=== PATIENT | female | born 1965 | race Caucasian/White ===

== ENCOUNTER 2017-02-01 08:13 | Emergency (ER) | payer OTHER ==
[~2017-02-01 08:13] MED LIST: PERC5TAB12 PO
[2017-02-01 08:15] VITALS: BP 172/81; PULSE 95; RESP 18; O2SAT 98
[2017-02-01] MEDS ORDERED: SODIUM CHLORIDE 0.9% FLUSH 10 ML FLUSH IV FLUSH PRN (08:30)
[2017-02-01] MEDS ORDERED: bp med (08:34)
[2017-02-01 08:39] LABS: BLOOD, URINE SMALL (NEG); GLUCOSE,URINE NEG (NEG); KETONE, URINE NEG (NEG); NITRITE,URINE NEG (NEG); PH, URINE 5.5 (5.0-8.5)
[2017-02-01 08:44] LABS: METHOD OF COLLECTION CLEAN CATCH; URINE COLOR YELLOW (YELLW/STRAW)
[2017-02-01 08:45] LABS: COMMENT (UR) CULT NOT INDICATED; CULTURE IF INDICATED CULT NOT INDICATED; SQUAMOUS EPITHELIAL CELL URINE 0-5 /hpf (0-5); WBC, URINE 0-2 /hpf (0-5)
[2017-02-01 08:50] LABS: AUTOMATED NEUTROPHIL # 9.7 TH/MM3 (1.8-7.7); BASOPHIL # 0.3 TH/MM3 (0-0.2); BASOPHIL % 2.4 % (0.0-2.0); EOSINOPHIL # 0.1 TH/MM3 (0-0.4); EOSINOPHIL % 0.5 % (0.0-4.0); HEMO FLAGS DIFF FINAL; LYMPH % 16.4 % (9.0-44.0); LYMPHOCYTE # 2.1 TH/MM3 (1.0-4.8); MEAN CORPUSCULAR HEMOGLOBIN 31.5 PG (27.0-34.0); MEAN CORPUSCULAR HGB CONC 34.3 % (32.0-36.0); NEUT % 74.7 % (16.0-70.0); PLATELET COUNT 303 TH/MM3 (150-450); RED BLOOD COUNT 4.78 MIL/MM3 (4.00-5.30); RED CELL DISTRIBUTION WIDTH 11.5 % (11.6-17.2)
[2017-02-01 08:59] LABS: CHLORIDE 100 MEQ/L (98-107); POTASSIUM 3.8 MEQ/L (3.5-5.1); SODIUM (NA) 135 MEQ/L (136-145)
[2017-02-01 09:03] LABS: ANION GAP 10 MEQ/L (5-15); BICARBONATE 25.2 MEQ/L (21.0-32.0); BLOOD UREA NITROGEN 6 MG/DL (7-18)
[2017-02-01 09:05] VITALS: BP 176/99; PULSE 88; RESP 18; O2SAT 98
[2017-02-01 09:06] LABS: ALT (GPT) 35 U/L (10-53); AST (GOT) 27 U/L (15-37); GLOMERULAR FILTRATION RATE 96 ML/MIN (>89)
[2017-02-01 09:08] LABS: TOTAL BILIRUBIN ADULT 1.4 MG/DL (0.2-1.0)
[2017-02-01 09:09] LABS: ALKALINE PHOSPHATASE 82 U/L (45-117)
[2017-02-01] MEDS ORDERED: IOHEXOL 350 MG/ML 10 ML VIAL (for RAD DIAG) IV ONE (09:39)
--- NOTE | 2017-02-01 09:46 | PD ---
HPI Chief Complaint: Abdominal Pain Time Seen by Provider: 08:21 Travel History International Travel<30 days: No Contact w/Intl Traveler<30days: No Traveled to known affect area: No History of Present Illness HPI 51-year-old female arrives complaining of lower abdomen/pelvic pain for about 20 hours or so. She states the onset was somewhat sudden. Pain has been constant since. It can be severe at times. It felt initially as though she had to urinate however no changes symptoms after urination is reported. No hematuria dysuria reported. No nausea vomiting or fever. Patient underwent uterine ablation years prior. Appetite has been normal. PFSH Past Medical History Cardiovascular Problems: Yes High Cholesterol: Yes Diminished Hearing: No Hypertension: Yes Influenza Vaccination: No ?: Not LMP: ablation Past Surgical History Gynecologic Surgery: Yes Other Surgery: Yes (breast reduction) Social History Alcohol Use: Yes Tobacco Use: No Substance Use: No Allergies-Medications (Allergen,Severity, Reaction): Coded Allergies: No Known Allergies (Verified , 02/01/17) Reported Meds & Prescriptions Reported Meds & Active Scripts Active Reported [bp med] 0 Review of Systems Except as stated in HPI: all other systems reviewed are Neg Physical Exam Narrative GENERAL: 51 yo F, WNWD, NAD SKIN: Warm and dry. HEAD: Atraumatic. Normocephalic. EYES: Pupils equal and round. No scleral icterus. No injection or drainage. ENT: No nasal bleeding or discharge. Mucous membranes pink and moist. NECK: Trachea midline. No JVD. CARDIOVASCULAR: Regular rate and rhythm. RESPIRATORY: No accessory muscle use. Clear to auscultation. Breath sounds equal bilaterally. GASTROINTESTINAL: Soft. TTP suprapubic abdomen. No flank tenderness. No TTP at McBurney's point. Negative Nelson's sign. MUSCULOSKELETAL: Extremities without clubbing, cyanosis, or edema. No obvious deformities. NEUROLOGICAL: Awake and alert. No obvious cranial nerve deficits. Motor grossly within normal limits. Five out of 5 muscle strength in the arms and legs. Normal speech. PSYCHIATRIC: Appropriate mood and affect; insight and judgment normal. Data Data Last Documented VS Vital Signs Date Time Temp Pulse Resp B/P Pulse Ox O2 Delivery O2 Flow Rate FiO2 02/01/17 09:05 88 18 176/99 98 02/01/17 08:15 Room Air Orders Complete Blood Count With Diff (02/01/17 08:25) Comprehensive Metabolic Panel (02/01/17 08:25) Lipase (02/01/17 08:25) Urinalysis - C+S If Indicated (02/01/17 08:25) Iv Access Insert/Monitor (02/01/17 08:25) Ecg Monitoring (02/01/17 08:25) Oximetry (02/01/17 08:25) Sodium Chloride 0.9% Flush (Ns Flush) (02/01/17 08:30) Ct Abd/Pel W Iv Contrast(Rout) (02/01/17 08:47) Iohexol 350 Inj (Omnipaque 350 Inj) (02/01/17 09:39) Labs Laboratory Tests Test 02/01/17 02/01/17 08:30 08:45 Urine Collection Type CLEAN CATCH Urine Color YELLOW Urine Turbidity CLEAR Urine pH 5.5 Urine Specific [place] 1.012 Urine Protein NEG mg/dL Urine Glucose (UA) NEG mg/dL Urine Ketones NEG mg/dL Urine Occult Blood SMALL Urine Nitrite NEG Urine Bilirubin NEG Urine Leukocyte Esterase NEG Urine RBC 4-9 /hpf Urine WBC 0-2 /hpf Urine Squamous Epithelial 0-5 /hpf Cells Microscopic Urinalysis Comment CULT NOT INDICATED Urine Collection Time 08:30 White Blood Count 13.0 TH/MM3 Red Blood Count 4.78 MIL/MM3 Hemoglobin 15.1 GM/DL Hematocrit 44.0 % Mean Corpuscular Volume 92.0 FL Mean Corpuscular Hemoglobin 31.5 PG Mean Corpuscular Hemoglobin 34.3 % Concent Red Cell Distribution Width 11.5 % Platelet Count 303 TH/MM3 Mean Platelet Volume 6.6 FL Neutrophils (%) (Auto) 74.7 % Lymphocytes (%) (Auto) 16.4 % Monocytes (%) (Auto) 6.0 % Eosinophils (%) (Auto) 0.5 % Basophils (%) (Auto) 2.4 % Neutrophils # (Auto) 9.7 TH/MM3 Lymphocytes # (Auto) 2.1 TH/MM3 Monocytes # (Auto) 0.8 TH/MM3 Eosinophils # (Auto) 0.1 TH/MM3 Basophils # (Auto) 0.3 TH/MM3 CBC Comment DIFF FINAL Differential Comment Sodium Level 135 MEQ/L Potassium Level 3.8 MEQ/L Chloride Level 100 MEQ/L Carbon Dioxide Level 25.2 MEQ/L Anion Gap 10 MEQ/L Blood Urea Nitrogen 6 MG/DL Creatinine 0.65 MG/DL Estimat Glomerular Filtration 96 ML/MIN Rate Random Glucose 120 MG/DL Calcium Level 9.5 MG/DL Total Bilirubin 1.4 MG/DL Aspartate Amino Transf 27 U/L (AST/SGOT) Alanine Aminotransferase 35 U/L (ALT/SGPT) Alkaline Phosphatase 82 U/L Total Protein 7.9 GM/DL Albumin 3.9 GM/DL Lipase 216 U/L MDM Medical Decision Making Medical Screen Exam Complete: Yes Emergency Medical Condition: Yes Medical Record Reviewed: Yes Differential Diagnosis Constipation, Gastritis, Acute Cholecystitis, Biliary Colic, Pancreatitis, VERMA , Hepatitis, Bowel Obstruction, Cystitis, Mesenteric Ischemia, AAA, Appendicitis , Renal Stone/Hydronephrosis, GERD, perforated viscous Narrative Course CBC & BMP Diagram 02/01/17 08:45 LFTs normal UA no UTI Last 24 hours Impressions Abdomen/Pelvis CT 02/01/17 0836 Signed Impressions: Service Date/Time: Wednesday, February 01, 2017 09:22 - CONCLUSION: 1. Acute diverticulitis involving the proximal sigmoid colon without pericolic abscess. 2. Tiny 8 mm calcified exophytic fibroid arising from the uterine fundus. 3. Enlarged fatty liver. 4. Mild degenerative changes and scoliosis of the thoracolumbar spine. 5. Minimal posterior bibasilar atelectasis. Gaurav Chen MD The patient is resting comfortably and feels better, is alert and in no distress. The patients results and examination findings were discussed. The repeat examination is unremarkable and benign. The history, exam, diagnostic testing, and current condition do not suggest any significant pathology to warrant further testing, continued ED treatment, admission, or surgical evaluation at this point. The vital signs have been stable. The patient does not have uncontrollable pain, intractable vomiting, or other significant symptoms. The patient's condition is stable and appropriate for discharge. The patient will pursue further outpatient evaluation with a primary care physician or other designated or consulting physician as indicated in the discharge instructions. The patient expressed understanding and was agreeable with this plan. Diagnosis Primary Impression: Diverticulitis Qualified Code: K57.32 - Diverticulitis of large intestine without perforation or abscess without bleeding Referrals: Primary Care Physician 2 days Additional Instructions: RETURN TO THE ER IF YOU DEVELOP FEVER, SEVERE OR WORSENING PAIN, ESPECIALLY WITHIN THE NEXT EIGHT HOURS AFTER DISCHARGE. PLEASE BE SURE TO READ ABOUT DIVERTICULITIS AND ADJUST YOUR DIET ACCORDINGLY. RECURRENT EPISODES MAY REQUIRE A COLECTOMY WITH AN ABDOMINAL WALL OSTOMY BAG WHICH IS OBVIOUSLY UNDESIRABLE. Med/Other Pt SpecificInfo: Prescription(s) given Scripts Metronidazole (Flagyl)500 Mg [id number] Mg PO TID 10 Days Ref 0 Prov:Jon Persaud MD 02/01/17 Ciprofloxacin (Cipro)500 Mg [id number] Mg PO BID 10 Days Ref 0 Prov:Jon Persaud MD 02/01/17 Disposition: 01 DISCHARGE HOME Condition: Stable Jon Persaud MD Feb 01, 2017 09:46
--- NOTE | 2017-02-01 09:58 | RADRPT ---
EXAM DATE/TIME: 02/01/2017 09:22 [facility] COMPARISON: No previous studies available for comparison. INDICATIONS : Suprapubic pain for one day. IV CONTRAST: 90 cc Omnipaque 350 (iohexol) IV ORAL CONTRAST: No oral contrast ingested. RADIATION DOSE: 9.54 CTDIvol (mGy) MEDICAL HISTORY : Hypertension. SURGICAL HISTORY : None. ENCOUNTER: Initial ACUITY: 1 day PAIN SCALE: 6/10 LOCATION: pelvis TECHNIQUE: Volumetric scanning of the abdomen and pelvis was performed. Using automated exposure control and ad justment of the mA and/or kV according to patient size, radiation dose was kept as low as reasonably achievable to obtain optimal diagnostic quality images. DICOM format image data is available electro nically for review and comparison. FINDINGS: LOWER LUNGS: Minimal posterior bibasilar atelectasis is noted. LIVER: The liver is enlarged and demonstrates diffuse fatty infiltration.. There is no dilation of the bili shubham tree. No calcified gallstones. SPLEEN: Normal size without lesion. PANCREAS: Within normal limits. KIDNEYS: Normal in size and shape. There is no mass, stone or hydronephrosis. ADRENAL GLANDS: Within normal limits. VASCULAR: There is no aortic aneurysm. BOWEL/MESENTERY: There is a focal thickening as well as pericolic inflammatory changes involving the proximal sigmoid colon consistent with acute diverticulitis. No pericolic abscess is noted. ABDOMINAL WALL: Within normal limits. RETROPERITONEUM: There is no lymphadenopathy. BLADDER: No wall thickening or mass. REPRODUCTIVE: There is a tiny 8 mm calcified exophytic fibroid arising from the uterine fundus. INGUINAL: There is no lymphadenopathy or hernia. MUSCULOSKELETAL: Degenerative changes and scoliosis of the thoracolumbar spine are noted. CONCLUSION: 1. Acute diverticulitis involving the proximal sigmoid colon without pericolic abscess. 2. Tiny 8 mm calcified exophytic fibroid arising from the uterine fundus. 3. Enlarged fatty liver. 4. Mild degenerative changes and scoliosis of the thoracolumbar spine. 5. Minimal posterior bibasilar atelectasis. Gaurav Chen MD on February 01, 2017 at 9:52 Board Certified Radiologist. This report was verified electronically.
[2017-02-01] MEDS ORDERED: CIPR-9 PO (10:10)
[2017-02-01] MEDS ORDERED: METR-1 PO (10:10)
== END 2017-02-01 10:20 | disposition home or self-care (01) ==
LOC: PHED 08:13
DX: K57.32 Diverticulitis of large intestine without perforation or abscess without bleeding (principal); D25.9 Leiomyoma of uterus, unspecified; K76.0 Fatty (change of) liver, not elsewhere classified; J98.11 Atelectasis; I10 Essential (primary) hypertension; E78.00 Pure hypercholesterolemia, unspecified; Z86.79 Personal history of other diseases of the circulatory system
CPT/HCPCS: 74177; 80053; 81001; 83690; 85025; 99285; Q9967

== ENCOUNTER 2017-12-05 16:45 | Emergency (ER) | payer OTHER ==
[~2017-12-05] VITALS: Ht 157.5 cm; Wt 69.0 kg
[~2017-12-05 16:45] MED LIST changes: +CIPR-9 PO; +METR-1 PO; -PERC5TAB12 PO; +bp med
[2017-12-05 16:52] VITALS: BP 176/90; PULSE 96; RESP 16; TEMP 98.6; O2SAT 96
--- NOTE | 2017-12-05 17:50 | RADRPT ---
EXAM DATE: 12/05/2017 5:45 PM EDT AGE/SEX: 52 years / Female INDICATIONS: Right foot pain post fall CLINICAL DATA: This is the patient's initial encounter. Patient reports that signs and symptoms have been present for 3 days and indicates a pain score of 5/10. MEDICAL/SURGICAL HISTORY: None. None. COMPARISON: No prior [place] exams available for comparison. FINDINGS: Bony structures are intact and in normal alignment. Osseous density is normal. Soft tissues are unre markable. No radiopaque foreign bodies seen. CONCLUSION: No acute bony abnormality. Electronically signed by: Santiago Matthews MD 12/05/2017 5:49 PM EDT
--- NOTE | 2017-12-05 17:52 | RADRPT ---
EXAM DATE: 12/05/2017 5:47 PM EDT AGE/SEX: 52 years / Female INDICATIONS: Right ankle pain post fall CLINICAL DATA: This is the patient's initial encounter. Patient reports that signs and symptoms have been present for 3 days and indicates a pain score of 5/10. MEDICAL/SURGICAL HISTORY: None. None. COMPARISON: No prior [place] exams available for comparison. FINDINGS: Soft tissue swelling noted over the lateral malleolus. No acute fracture or dislocation. Mild degener ative change of the ankle joint. CONCLUSION: Soft tissue swelling over the lateral malleolus. No acute bony abnormality. Electronically signed by: Santiago Matthews MD 12/05/2017 5:51 PM EDT
--- NOTE | 2017-12-05 18:02 | PD ---
HPI Chief Complaint: Injury Time Seen by Provider: 17:18 Travel History International Travel<30 days: No Contact w/Intl Traveler<30days: No Traveled to known affect area: No History of Present Illness HPI 52-year-old female here with right ankle pain and swelling after twisting injury 2 days ago. She reports she read twisted the ankle today and now has difficulty bearing weight. Denies paresthesia or weakness of the extremity. Symptom severity is moderate. Aggravated by weightbearing and range of motion. Slightly relieved with rest. No other injuries. PFSH Past Medical History Medical History: Denies Significant Hx Cardiovascular Problems: Yes High Cholesterol: Yes Diminished Hearing: No Hypertension: Yes Influenza Vaccination: No ?: Not LMP: HAD UTERINE ABLASION Past Surgical History Gynecologic Surgery: Yes Other Surgery: Yes (breast reduction) Social History Alcohol Use: Yes Tobacco Use: No Substance Use: No Allergies-Medications (Allergen,Severity, Reaction): Coded Allergies: No Known Allergies (Verified Adverse Reaction, Unknown, 12/05/17) Reported Meds & Prescriptions Reported Meds & Active Scripts Active Review of Systems Except as stated in HPI: all other systems reviewed are Neg Physical Exam Narrative GENERAL: Alert and well-appearing 52-year-old female SKIN: Warm and dry. HEAD: Normocephalic. Atraumatic EYES: No injection or drainage. NECK: Supple MUSCULOSKELETAL: No cyanosis. Right lower extremity: Notable tenderness and swelling to the lateral malleolus of the ankle. No obvious deformity. Tenderness over the base of the fifth metatarsal. Can freely wiggle the toes. Palpable DP pulse. Normal sensation. Brisk cap refill. Data Data Last Documented VS Vital Signs Date Time Temp Pulse Resp B/P (MAP) Pulse Ox O2 Delivery O2 Flow Rate FiO2 12/05/17 16:52 98.6 96 16 176/90 (118) 96 Orders Orders Foot, Limited (2vws) (12/05/17 ) Ankle, Complete ([id number]) (12/05/17 ) Chris Bandage (12/05/17 18:02) Ed Discharge Order (12/05/17 18:03) MDM Medical Decision Making Medical Screen Exam Complete: Yes Emergency Medical Condition: Yes Differential Diagnosis Ankle sprain, ankle fracture, contusion Narrative Course 52-year-old female here with an ankle sprain. Extremities neurovascularly intact. X-rays negative for fracture. Chris wrap applied. Diagnosis Primary Impression: Ankle sprain Qualified Codes: S93.401A - Sprain of unspecified ligament of right ankle, initial encounter Referrals: Primary Care Physician Additional Instructions: Rest, ice, elevate the extremity. Chris wrap as directed. Follow-up with your primary doctor. Disposition: 01 DISCHARGE HOME Condition: Stable Usha Scott December 05, 2017 18:02
== END 2017-12-05 18:11 | disposition home or self-care (01) ==
LOC: PHEFT 16:45
DX: S93.401A Sprain of unspecified ligament of right ankle, initial encounter (principal); X50.1XXA Overexertion from prolonged static or awkward postures, initial encounter; E78.00 Pure hypercholesterolemia, unspecified; I10 Essential (primary) hypertension
CPT/HCPCS: 73610; 73620; 99283